=== PATIENT | male | born 1985 | race Caucasian/White ===

== ENCOUNTER 2019-12-09 06:57 | Day surgery (SDC) | payer OTHER ==
[~2019-12-09] VITALS: Ht 180.3 cm; Wt 75.7 kg
[2019-12-09] MEDS ORDERED: NONE PER PT (07:39)
[2019-12-09] MEDS ORDERED: LACTATED RINGERS 1,000 ML IV SCH (07:42)
[2019-12-09] MEDS ORDERED: CHLORHEXIDINE 15 ML UDC ONE (07:46)
[2019-12-09] MEDS ORDERED: CHLORHEXIDINE 15 ML UDC MM ONE (08:00)
[2019-12-09] MEDS ORDERED: HYDROcodone/APAP 5/325 TABLET PO PRN (08:00)
[2019-12-09] MEDS ORDERED: LIDOCAINE-MPF 1%, 2ML INFIL ONE (08:00)
[2019-12-09 08:02] VITALS: BP 114/76
[2019-12-09] MEDS ORDERED: MIDAZOLAM 1 MG/ML, 2ML ONE (08:42)
[2019-12-09] MEDS ORDERED: FENTANYL PF 250 MCG/5ML ONE (08:42)
[2019-12-09] MEDS ORDERED: BUPIVACAINE/PF 0.5% ONE (09:01)
[2019-12-09] MEDS ORDERED: DEXAMETHASONE 4 MG/ML, 1ML ONE (09:28)
[2019-12-09] MEDS ORDERED: PROPOFOL 10 MG/ML, 20ML ONE (09:28)
[2019-12-09] MEDS ORDERED: CEFAZOLIN 1,000 MG ONE (09:28)
[2019-12-09] MEDS ORDERED: ONDANSETRON 2MG/ML, 2ML ONE (09:28)
[2019-12-09] MEDS ORDERED: SUCCINYLCHOLINE 20 MG/ML, 10ML ONE (09:28)
[2019-12-09] MEDS ORDERED: hydrALAzine 20 MG/ML, 1ML IV PRN (10:00)
[2019-12-09] MEDS ORDERED: METOCLOPRAMIDE 5 MG/ML, 2ML IV PRN (10:00)
[2019-12-09] MEDS ORDERED: DIAZEPAM 5 MG/ML, 2ML IV PRN ×2 (10:00)
[2019-12-09] MEDS ORDERED: ALBUTEROL SULFATE 2.5 MG/3 ML NPPB PRN (10:00)
[2019-12-09] MEDS ORDERED: FENTANYL PF 100 MCG/2ML IV PRN (10:00)
[2019-12-09] MEDS ORDERED: KETOROLAC 30 MG/1 ML IV PRN (10:00)
[2019-12-09] MEDS ORDERED: ONDANSETRON 2MG/ML, 2ML IVPush PRN (10:00)
[2019-12-09] MEDS ORDERED: HYDROmorphone 1 MG/ML, 1ML INJ IV PRN (10:00)
[2019-12-09] MEDS ORDERED: PROMETHAZINE 25 MG/ML, 1ML IV PRN (10:00)
[2019-12-09] MEDS ORDERED: OXYcodone 5 MG/5 ML ORAL.SOL UDC PO PRN (10:00)
[2019-12-09] MEDS ORDERED: LABETALOL 5MG/ML, 20ML IV PRN (10:00)
[2019-12-09] MEDS ORDERED: MEPERIDINE/PF 25MG/0.5ML IVPush PRN (10:00)
== END 2019-12-09 11:20 | disposition home or self-care (01) ==
LOC: OUT 06:57
PROVIDERS: ATTEND Surgery Surgery of the Hand
DX: M67.432 Ganglion, left wrist (principal); Z11.59 Encounter for screening for other viral diseases; Z87.891 Personal history of nicotine dependence
CPT/HCPCS: 25111; 36415; 87635; J0330; J0690; J1100; J2250; J2405; J2704; J3010; J7120